=== PATIENT | female | born 1990 | race Caucasian/White ===

== ENCOUNTER → 2019-04-21 | Outpatient (CLI) | payer BC, OTHER ==
[~2019-04-21] MED LIST: TRIL; TRILEPTAL PO
--- NOTE | 2019-04-22 04:18 | REP ---
Clinical: Trauma. Technique: AP, lateral, bilateral oblique views right fifth digit . Findings: The osseous structures and joint spaces are intact and normal. There is no evidence for acute fracture or dislocation. Surrounding soft tissues are unremarkable. No subcutaneous emphysema or radiodense foreign body. Impression: No acute fracture or dislocation. Electronically Signed by Anibal Messer MD 04/22/2019 04:09 A
== END ==
LOC: M ADAMS 14:00
PROVIDERS: ATTEND Physician Assistant
DX: S67.196A Crushing injury of right little finger, initial encounter (principal); X58.XXXA Exposure to other specified factors, initial encounter; Y92.89 Other specified places as the place of occurrence of the external cause